=== PATIENT | male | born 1960 | race Two or more races ===

== ENCOUNTER 2016-10-09 19:49 | Emergency (ER) | payer OTHER ==
[~2016-10-09] VITALS: Ht 177.8 cm; Wt 81.6 kg
[2016-10-09] MEDS ORDERED: TdaP Vaccine 0.5ml Syr IM ONE (21:15)
[2016-10-09] MEDS ORDERED: Bacitracin Oint UD TOPIC ONE (21:15)
[2016-10-09] MEDS ORDERED: Hydrogen Peroxide 120ml Bottle TOPIC ONE (21:38)
[2016-10-09 22:00] VITALS: BP 93/58
--- NOTE | 2016-10-09 22:27 | Emergency Room Report ---
History of Present Illness General Chief Complaint: Laceration Source: Patient, EMS (Marvin Medina M.D.) Present Illness HPI Patient was drinking heavily (states suggested because blood pressure was elevated). He fell and hit his head against ? wall. Denies LOC. 150 ml blood estimated by paramedics. They dressed wound and believe there are 2 wounds - forehead and back of head. > 10 tetanus. Patient denies SI or HI. Denies problem with alcohol. No chest pain, NVD. Still dizzy. Minimal headache. No neck pain. (Marvin Medina M.D.) Allergies: Coded Allergies: No Known Allergies (Unverified , 10/09/16) Patient History Past Medical History: see triage record Social History: Reports: alcohol use, smoking Social History Narrative Reviewed Nursing Documentation: PMH: Agreed, PSxH: Agreed (Marvin Medina M.D.) Nursing Documentation-PMH Hx Hypertension: Yes (Marvin Medina M.D.) Review of Systems All Other Systems: negative except mentioned in HPI (Marvin Medina M.D.) Physical Exam Vital Signs Date Time Temp Pulse Resp B/P Pulse Ox O2 Delivery O2 Flow Rate FiO2 10/09/16 19:33 98.4 102 16 136/82 100 Sp02 EP Interpretation: reviewed, normal General Appearance: well appearing, no apparent distress, GCS 15, other - EtOH breath Head: normocephalic, other - laceration L forehead Eyes: bilateral eye PERRL, bilateral eye Scleral Injection ENT: moist mucus membranes Neck: full range of motion, supple, no bony tend Respiratory: chest non-tender, lungs clear, normal breath sounds Cardiovascular #1: regular rate, rhythm Cardiovascular #2: 2+ radial (R) Gastrointestinal: normal inspection, normal bowel sounds, non tender, no mass, non-distended Musculoskeletal: back normal, normal range of motion Neurologic: alert, 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, 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 as tested - with nystagmus, motor strength/tone normal, DTRs symmetric, sensory intact, other - slurred speech and ataxia Psychiatric: no suicidal/homicidal ideation, other - denial and poor insight Skin: warm/dry, laceration - 5 cm L forehead with arterial bleeding (Marvin Medina M.D.) Procedures Laceration/Wound Repair Laceration/Wound Repair : Consent: Verbal Wound Location: face Wound's Depth, Shape: into muscle, linear Wound Length (cm): 5 Wound Explored: clean Irrigated w/ Saline (ccs): 30 Betadine Prep?: Yes Anesthesia: Lidocaine w/ Epi Wound Debrided: none Wound Repaired With: sutures Suture Size/Type: 6:0, proline Layer Closure?: Yes Deep Layer Suture Size/Type: 6:0, 4:0, other - vicryl Sterile Dressing Applied?: Yes Splint Applied?: No Patient Tolerated: Well Complications: None Progress After prep, lidocain with epi. Still with arterial bleeding. Clamp bilateral sides of lac and tie off bleeders. Bleeding controlled. Irrigated. Deep layer closure with 4-0 vicryl. Irrigated. Sub cuticular with 6-0 vicryl. Irrigated. Dermal closure with 6-0 prolene. (Marvin Medina M.D.) Medical Decision Making Diagnostic Impression: Primary Impression: Complex laceration of face Qualified Codes: S01.91XA - Laceration without foreign body of unspecified part of head, initial encounter Additional Impressions: Arterial hemorrhage Alcohol intoxication Qualified Codes: F10.120 - Alcohol abuse with intoxication, uncomplicated Head injury Qualified Codes: S09.90XA - Unspecified injury of head, initial encounter ER Course Patient with head injury with forehead laceration with arterial bleeding. Emergent control of hemorrhage indicated. CT also indicated with tetanus. (DDX : etoh, brain bleed, subdural amongst others). Bleeding controlled with tie of arterial sources. See procedure notes. CT with lac but otherwise normal. Patient attempted to go to the bathroom with . Fell to R knee. Almost fell onto face and somewhat altered and pale until lay down. Needs IV, labs, EKG, H/H. Transiently hypotensive. EKG no injury. H/H adequate. + BA Attempt to discuss alcohol issue with patient and - denial of problem. Improved with 1st liter but still low BP. Second liter ordered. Signed out to Dr. De Leon. Laboratory Tests Test 10/09/16 22:55 10/09/16 23:14 White Blood Count 13.2 K/UL (4.8-10.8) H Red Blood Count 4.06 M/UL (4.70-6.10) L Hemoglobin 12.8 G/DL (14.2-18.0) L Hematocrit 37.8 % (42.0-52.0) L Mean Corpuscular Volume 93 FL (80-99) Mean Corpuscular Hemoglobin 31.6 PG (27.0-31.0) H Mean Corpuscular Hemoglobin Concent 34.0 G/DL (32.0-36.0) Red Cell Distribution Width 11.5 % (11.6-14.8) L Platelet Count 367 K/UL (150-450) Mean Platelet Volume 5.6 FL (6.5-10.1) L Neutrophils (%) (Auto) 76.5 % (45.0-75.0) H Lymphocytes (%) (Auto) 18.0 % (20.0-45.0) L Monocytes (%) (Auto) 4.6 % (1.0-10.0) Eosinophils (%) (Auto) 0.3 % (0.0-3.0) Basophils (%) (Auto) 0.6 % (0.0-2.0) Prothrombin Time 10.0 SEC (9.30-11.50) Prothrombin Time INR 1.0 (0.9-1.1) PTT 25 SEC (23-33) Sodium Level 131 mEQ/L (135-145) L Potassium Level 3.9 mEQ/L (3.4-4.9) Chloride Level 88 mEQ/L (98-107) L Carbon Dioxide Level 18 mEQ/L (20-30) L Anion Gap 25 (5-15) H Blood Urea Nitrogen 7 mg/dL (7-23) Creatinine 1.4 mg/dL (0.7-1.2) H Estimate Glomerular Filtration Rate 52.6 mL/min (>60) Glucose Level 140 mg/dL (74-106) H Calcium Level 8.4 mg/dL (8.6-10.2) L Total Bilirubin 0.3 mg/dL (0.0-1.2) Aspartate Amino Transferase (AST) 25 U/L (5-40) Alanine Aminotransferase (ALT) 15 U/L (3-41) Alkaline Phosphatase 61 U/L (40-129) Total Creatine Kinase 162 U/L (38-174) Troponin I < 0.30 ng/mL (<=0.30) Total Protein 7.1 g/dL (6.6-8.7) Albumin 4.4 g/dL (3.5-5.2) Globulin 2.7 g/dL Albumin/Globulin Ratio 1.6 (1.0-2.7) Serum Alcohol 246 mg/dL Urine Opiates Screen Negative (NEGATIVE) Urine Barbiturates Screen Negative (NEGATIVE) Phencyclidine (PCP) Screen Negative (NEGATIVE) Urine Amphetamines Screen Negative (NEGATIVE) Urine Benzodiazepines Screen Negative (NEGATIVE) Urine Cocaine Screen Negative (NEGATIVE) Urine Marijuana (THC) Screen Negative (NEGATIVE) (Marvin Medina M.D.) ER Course Patient signed out to me. He presents with alcohol intoxication and her scalp laceration. He is talking clearly now. Walking to the bathroom without any difficulty. We'll discharge home. Still denied having problem with drinking. Said he was drinking heavily today but denies this is a recurrent thing. We'll discharge home. (BHAVYA DE LEON M.D.) EKG Diagnostic Results Rate: normal Rhythm: NSR ST Segments: no acute changes (Marvin Medina M.D.) Rhythm Strip Diag. Results EP Interpretation: yes Rhythm: NSR, no PVC's, no ectopy (Marvin Medina M.D.) Chest X-Ray Diagnostic Results EP Interpretation: Yes Findings: no consolidation, no effusion, no pneumothorax, no acute cardiopulmonary disease Number of Views: 1 (Marvin Medina M.D.) CT/MRI/US Diagnostic Results CT/MRI/US Diagnostic Results : Imaging Test Ordered: head Impression forehead laceration, no bleed, no fx (Marvin Medina M.D.) Last Vital Signs Date Time Temp Pulse Resp B/P Pulse Ox O2 Delivery O2 Flow Rate FiO2 10/09/16 22:00 87 14 93/58 97 Room Air 10/09/16 19:33 98.4 Status: improved (Marvin Medina M.D.) Status: unchanged (BHAVYA DE LEON M.D.) Disposition: HOME, SELF-CARE Condition: Improved Scripts Acetaminophen (Tylenol) 325 Mg Tablet 650 MG ORAL Q6H Y for Prn Pain/Headache/Temp > 101, #30 TAB 0 Refills Prov: Marvin Medina M.D. 10/09/16 Bacitracin (Bacitracin) 28.4 Gm Oint...g. 1 APPLIC TOPIC BID, #10 GM Prov: Marvin Medina M.D. 10/09/16 Referrals: [facility] (PCP) Additional Instructions: Follow up with your doctor in 7 days. Abstain from alcohol. Return if worse. Marvin Medina M.D. Oct 09, 2016 22:27 BHAVYA DE LEON M.D. Oct 10, 2016 00:45
[2016-10-09] MEDS ORDERED: BACITRACIN15 GM TOPIC (22:32)
[2016-10-09] MEDS ORDERED: TYLENOL325 MG ORAL (22:32)
[2016-10-09 23:24] LABS: BASOPHILS % (AUTO) 0.6 % (0.0-2.0); EOSINOPHILS % (AUTO) 0.3 % (0.0-3.0); MEAN CORPUSCULAR HEMOGLOBIN 31.6 PG (27.0-31.0); MEAN CORPUSCULAR VOLUME 93 FL (80-99); MEAN PLATELET VOLUME 5.6 FL (6.5-10.1); MONOCYTES % (AUTO) 4.6 % (1.0-10.0); NEUTROPHILS % (AUTO) 76.5 % (45.0-75.0); PLATELET COUNT 367 K/UL (150-450); RED BLOOD COUNT 4.06 M/UL (4.70-6.10); RED CELL DISTRIBUTION WIDTH 11.5 % (11.6-14.8); WHITE BLOOD COUNT 13.2 K/UL (4.8-10.8)
[2016-10-09 23:44] LABS: ALANINE AMINOTRANSFERASE 15 U/L (3-41); ALBUMIN/GLOBULIN RATIO 1.6 (1.0-2.7); ALCOHOL 246 mg/dL; ANION GAP 25 (5-15); ASPARTATE AMINO TRANSFERASE 25 U/L (5-40); CALCIUM 8.4 mg/dL (8.6-10.2); CARBON DIOXIDE 18 mEQ/L (20-30); CHLORIDE 88 mEQ/L (98-107); CREATININE 1.4 mg/dL (0.7-1.2); GLOMERULAR FILTRATION RATE 52.6 mL/min (>60); HEMOLYSIS 5; POTASSIUM 3.9 mEQ/L (3.4-4.9); SODIUM 131 mEQ/L (135-145); TOTAL PROTEIN 7.1 g/dL (6.6-8.7)
[2016-10-09 23:45] LABS: TROPONIN I < 0.30 ng/mL (<=0.30)
[2016-10-10 00:01] VITALS: BP 90/44
[2016-10-10 00:53] VITALS: BP 90/44
--- NOTE | 2016-10-10 18:44 | Cardiology Report ---
APPROVED REPORT EKG Measurement Heart [id number] Normal sinus rhythm Normal ECG
--- NOTE | 2016-10-11 08:36 | Diagnostic Imaging Report ---
Clinical history: Shortness of breath Technique: Portable AP chest radiograph was obtained. Comparison: None Findings: Lung volumes are low. No focal consolidation is identified. There is no pneumonia or pulmonary edema. There is no pleural effusion or pneumothorax. The cardiac and mediastinal silhouettes are normal in appearance. The bony thorax is unremarkable. Impression: No acute cardiopulmonary process.
--- NOTE | 2016-10-11 08:36 | Diagnostic Imaging Report ---
\H\CT Brain without Intravenous Contrast INDICATION: \N\Trauma.\H\ COMPARISON: \N\None\H\ TECHNIQUE: Serial axial images were obtained from the the skull base through the vertex without intravenous contrast. Coronal reformats were obtained. Dose Estimate: Total DLP \N\1407\H\ mGycm CTDIvol \N\70\H\ mGy FINDINGS: The henry white matter differentiation appears normal. There is no evidence of acute intracranial hemorrhage or territorial infarct. The cortical sulci, ventricles and extra-axial CSF spaces are normal in size for patient's age. There is no space occupying lesion, mass effect or midline shift. Mucosal thickening involving the ethmoid air cells is noted. The remaining visualized paranasal sinuses and mastoid air cells are clear. The osseous structures are unremarkable. Left frontal scalp soft tissue laceration with subcutaneous air pockets is identified. \N\\H\IMPRESSION: 1. Left frontal scalp soft tissue laceration. No acute intracranial hemorrhage, midline shift, or mass effect. \N\
== END 2016-10-10 00:55 | disposition home or self-care (01) ==
LOC: EDBD 19:49 → EMR 21:06
DX: S01.81XA Laceration without foreign body of other part of head, initial encounter (principal); W19.XXXA Unspecified fall, initial encounter; Y92.9 Unspecified place or not applicable; F10.129 Alcohol abuse with intoxication, unspecified; R06.02 Shortness of breath; Z23 Encounter for immunization; F17.200 Nicotine dependence, unspecified, uncomplicated; I10 Essential (primary) hypertension
CPT/HCPCS: 12052; 36415; 70450; 71010; 80053; 80300; 82550; 84484; 85025; 85610; 85730; 90471; 90715; 93005; 96360; 96374; 99284; G0480; 80329

== ENCOUNTER 2016-10-16 12:46 | Emergency (ER) | payer OTHER ==
[~2016-10-16] VITALS: Ht 188 cm; Wt 81.6 kg
[~2016-10-16 12:46] MED LIST: BACITRACIN15 GM TOPIC; TYLENOL325 MG ORAL
[2016-10-16 12:56] VITALS: BP 176/85
--- NOTE | 2016-10-16 12:59 | Emergency Room Report ---
History of Present Illness General Chief Complaint: Wound Recheck/Suture Removal Present Illness HPI 55-year-old male presents emergency department complaining of sutures in the left side of his forehead x7 days to need removal status post wound closure here in the emergency department after fall. Patient denies discharge, erythema , tenderness or pain. Patient states he has been applying Neosporin as needed. Denies CP, Palpitations, LOC, AMS, dizziness, Changes in Vision, Sensation, paresthesias, or a sudden severe headache. Allergies: Coded Allergies: No Known Allergies (Unverified , 10/09/16) Patient History Past Medical History: see triage record Past Surgical History: none Pertinent Family History: none Immunizations: UTD Reviewed Nursing Documentation: PMH: Agreed, PSxH: Agreed Nursing Documentation-PMH Hx Hypertension: Yes Review of Systems All Other Systems: negative except mentioned in HPI Physical Exam Vital Signs Date Time Temp Pulse Resp B/P Pulse Ox O2 Delivery O2 Flow Rate FiO2 10/16/16 12:54 97.7 100 20 176/85 98 Room Air Sp02 EP Interpretation: reviewed, normal General Appearance: no apparent distress, alert, GCS 15, non-toxic Head: normocephalic, atraumatic Eyes: bilateral eye PERRL, bilateral eye normal inspection ENT: hearing grossly normal, normal pharynx, no angioedema, normal voice Neck: full range of motion, supple/symm/no masses Respiratory: lungs clear, normal breath sounds, speaking full sentences Cardiovascular #1: regular rate, rhythm, no edema Musculoskeletal: back normal, gait/station normal, normal range of motion Neurologic: alert, oriented x3, responsive, motor strength/tone normal, sensory intact, speech normal Psychiatric: judgement/insight normal, memory normal, mood/affect normal Skin: normal color, no rash, warm/dry, well hydrated, wd healing/no infection noted - 3in laceration with [address] on the left side of forehead, no evidence of infection Lymphatic: no adenopathy Medical Decision Making PA Attestation Dr. Weathers is my supervising Physician whom patient management has been discussed with. Diagnostic Impression: Primary Impression: Encounter for removal of sutures ER Course 55-year-old male presents emergency department complaining of sutures in the left side of his forehead x7 days to need removal status post wound closure here in the emergency department after fall. Patient denies discharge, erythema , tenderness or pain. Patient states he has been applying Neosporin as needed. Ddx considered but are not limited to laceration, tendon injury, cellulitis, dehiscence. Vital signs: are WNL, pt. is afebrile H&PE are most consistent with: healed laceration of the forehead ORDERS: none required at this time, the diagnosis is clinical ED INTERVENTIONS: - 11 Sutures removed. DISCHARGE: At this time pt. is stable for d/c to home. Will provide printed patient care instructions, and any necessary prescriptions. Care plan and follow up instructions have been discussed with the patient prior to discharge. Last Vital Signs Date Time Temp Pulse Resp B/P Pulse Ox O2 Delivery O2 Flow Rate FiO2 10/16/16 12:56 97.7 20 176/85 98 Room Air 10/16/16 12:54 100 Disposition: HOME, SELF-CARE Condition: Stable Scripts Bacitracin Zinc/Polymyx B Sulf (Double Antibiotic Ointment) 28.4 Gm Oint...g. 1 GM TP BID, #28.4 GM Prov: Jennifer Piper 10/16/16 Patient Instructions: Suture Removal, Care After Additional Instructions: Take medications as directed. Follow up with PCP in 3-5 days Return sooner to ED if new symptoms occur, or current symptoms become worse. - Please note that this Emergency Department Report was dictated using [employer] content producer technology software, occasionally this can lead to erroneous entry secondary to interpretation by the dictation equipment. Jennifer Piper Oct 16, 2016 12:59
[2016-10-16] MEDS ORDERED: DOUBLE ANTIBI28.4 GM TP (13:02)
[2016-10-16 13:11] VITALS: BP 162/81
== END 2016-10-16 13:14 | disposition home or self-care (01) ==
LOC: EMR 13:02
DX: S01.81XD Laceration without foreign body of other part of head, subsequent encounter (principal); W19.XXXD Unspecified fall, subsequent encounter; Z48.02 Encounter for removal of sutures; I10 Essential (primary) hypertension
CPT/HCPCS: 99283